=== PATIENT | male | born 1965 | race Caucasian/White ===

== ENCOUNTER 2018-06-18 13:39 | Observation (INO) | payer BC, OTHER ==
[~2018-06-18] VITALS: Ht 170.2 cm; Wt 112.6 kg
[~2018-06-18 13:39] MED LIST: ASPIRIN 81 LOW81 MG PO; BENADRYL25 M1 OR; HYDROCORT2.51 EX; HYDROXYZ HCL25 MG OR; IMITREX25 MG PO; LISINOPRIL10 MG PO; LORTAB 5/3255 MG PO; TOPAMAX25 MG PO
[2018-06-18 14:10] LABS: HEMATOCRIT 38.4 % (39.0-50.0); IMMATURE GRANULOCYTES 1.6 % (0.0-5.0); MEAN CELL VOLUME 86.3 fL CALC (80.0-100.0); MEAN CORPUSCULAR HGB 29.2 pG CALC (26.0-32.0); MEAN CORPUSCULAR HGB CONC 33.9 g/L CALC (32.0-36.0); NEUT# 5.31 thou/uL (1.82-7.42); RED BLOOD COUNT 4.45 mill/uL (4.70-6.10); RED CELL DISTRI WIDTH 13.4 % (11.5-15.5)
[2018-06-18 14:41] LABS: ALBUMIN 3.5 g/dL (3.2-5.0); BILIRUBIN, TOTAL 0.7 mg/dL (0.0-1.4); POTASSIUM 3.6 mmol/l (3.5-5.1); TOTAL PROTEIN 6.4 g/dL (6.3-8.2)
[2018-06-18 14:43] LABS: CREATININE 2.6 mg/dL (0.7-1.3)
[2018-06-18] MEDS ORDERED: PRAVASTATIN10 MG PO (15:58)
[2018-06-18] MEDS ORDERED: LOSARTAN POTASS50 MG PO (15:58)
[2018-06-18] MEDS ORDERED: AMITRIPTYLIN25 MG PO (15:59)
[2018-06-18] MEDS ORDERED: TAMSULOSIN HCL0.4 MG PO (15:59)
[2018-06-18] MEDS ORDERED: IMITREX25 MG PO (16:00)
[2018-06-18 16:15] VITALS: BP 118/61
[2018-06-18 17:29] LABS: URINE BILIRUBIN - DIPSTICK NEGATIVE (NEGATIVE); URINE BLOOD DIPSTICK MODERATE (NEGATIVE); URINE COLOR YELLOW; URINE GLUCOSE - DIPSTICK NEGATIVE (NEGATIVE); URINE KETONE NEGATIVE (NEGATIVE); URINE LEUK ESTERASE NEGATIVE (NEGATIVE); URINE NITRITE - DIPSTICK NEGATIVE (Negative); URINE PH 5.5 (4.5-8.0); URINE PROTEIN - DIPSTICK NEGATIVE (NEG-TRACE); URINE SPECIFIC GRAVITY <=1.005; URINE UROBILINOGEN - DIPSTICK 0.2 E.U./dL (0.2)
[2018-06-18 17:32] LABS: URINE CLARITY CLEAR
[2018-06-18 18:11] LABS: URINE SQUAMOUS EPITHELIAL CELL FEW EPI/hpf (0-FEW)
[2018-06-18 19:00] VITALS: BP 108/64
[2018-06-19 00:40] VITALS: BP 103/59
[2018-06-19 05:19] VITALS: BP 100/57
[2018-06-19 05:45] LABS: HEMATOCRIT 37.9 % (39.0-50.0); HEMOGLOBIN 12.8 g/dl (14.0-18.0); IMMATURE GRANULOCYTES 0.4 % (0.0-5.0); MEAN CELL VOLUME 87.7 fL CALC (80.0-100.0); MEAN CORPUSCULAR HGB 29.6 pG CALC (26.0-32.0); MEAN CORPUSCULAR HGB CONC 33.8 g/L CALC (32.0-36.0); NEUT# 3.48 thou/uL (1.82-7.42); RED BLOOD COUNT 4.32 mill/uL (4.70-6.10); RED CELL DISTRI WIDTH 13.5 % (11.5-15.5)
[2018-06-19 06:19] LABS: ANION GAP 13 (6-22 (CALC)); BUN 20 mg/dL (9-20); CARBON DIOXIDE 21 mmol/l (22-30); CHLORIDE 110 mmol/l (95-108); GFR 53 ML/MIN (>=60 (CALC)); POTASSIUM 3.8 mmol/l (3.5-5.1); SODIUM 140 mmol/l (137-146)
[2018-06-19 06:24] LABS: BUN/CREATININE RATIO 14 (12-20 (CALC)); CREATININE 1.4 mg/dL (0.7-1.3); GFR FOR AFR.AMER. > 60 ML/MIN (>=60 (CALC))
[2018-06-19 08:00] VITALS: BP 97/52
[2018-06-19 11:07] VITALS: BP 91/58
[2018-06-19 15:22] VITALS: BP 103/43
[2018-06-19 19:27] VITALS: BP 99/52
[2018-06-20] VITALS: BP 133/80
[2018-06-20 04:00] VITALS: BP 128/80
[2018-06-20 07:20] VITALS: BP 96/50
[2018-06-20 07:47] LABS: HEMATOCRIT 37.1 % (39.0-50.0); HEMOGLOBIN 12.3 g/dl (14.0-18.0); IMMATURE GRANULOCYTES 0.6 % (0.0-5.0); MEAN CELL VOLUME 88.3 fL CALC (80.0-100.0); MEAN CORPUSCULAR HGB 29.3 pG CALC (26.0-32.0); MEAN CORPUSCULAR HGB CONC 33.2 g/L CALC (32.0-36.0); NEUT# 1.91 thou/uL (1.82-7.42); RED BLOOD COUNT 4.2 mill/uL (4.70-6.10); RED CELL DISTRI WIDTH 13.6 % (11.5-15.5)
[2018-06-20 08:41] LABS: ALKALINE PHOSPHATASE 30 u/l (38-126); ANION GAP 11 (6-22 (CALC)); BILIRUBIN, TOTAL 0.5 mg/dL (0.0-1.4); BUN 14 mg/dL (9-20); BUN/CREATININE RATIO 14 (12-20 (CALC)); CARBON DIOXIDE 24 mmol/l (22-30); CHLORIDE 111 mmol/l (95-108); CPK 1414 u/l (52-200); CREATININE 1.1 mg/dL (0.7-1.3); GFR > 60 ML/MIN (>=60 (CALC)); GFR FOR AFR.AMER. > 60 ML/MIN (>=60 (CALC)); POTASSIUM 4.5 mmol/l (3.5-5.1); SGOT/AST 52 u/l (17-59); SGPT/ALT 41 u/l (21-72); SODIUM 142 mmol/l (137-146); TOTAL PROTEIN 5.7 g/dL (6.3-8.2)
[2018-06-20 11:05] VITALS: BP 105/61
[2018-06-20 16:05] VITALS: BP 114/70
[2018-06-20 19:00] VITALS: BP 105/66
[2018-06-21] VITALS: BP 103/64
[2018-06-21 05:05] LABS: HEMATOCRIT 38.4 % (39.0-50.0); HEMOGLOBIN 12.9 g/dl (14.0-18.0); IMMATURE GRANULOCYTES 0.4 % (0.0-5.0); MEAN CELL VOLUME 87.3 fL CALC (80.0-100.0); MEAN CORPUSCULAR HGB 29.3 pG CALC (26.0-32.0); MEAN CORPUSCULAR HGB CONC 33.6 g/L CALC (32.0-36.0); NEUT# 2.76 thou/uL (1.82-7.42); RED BLOOD COUNT 4.4 mill/uL (4.70-6.10); RED CELL DISTRI WIDTH 13.2 % (11.5-15.5)
[2018-06-21 05:27] LABS: ALBUMIN 3.4 g/dL (3.2-5.0); ALKALINE PHOSPHATASE 36 u/l (38-126); ANION GAP 15 (6-22 (CALC)); BILIRUBIN, TOTAL 0.6 mg/dL (0.0-1.4); BUN 13 mg/dL (9-20); BUN/CREATININE RATIO 12 (12-20 (CALC)); CARBON DIOXIDE 22 mmol/l (22-30); CHLORIDE 112 mmol/l (95-108); CREATININE 1.1 mg/dL (0.7-1.3); GFR > 60 ML/MIN (>=60 (CALC)); GFR FOR AFR.AMER. > 60 ML/MIN (>=60 (CALC)); MAGNESIUM 1.7 mg/dL (1.6-2.3); POTASSIUM 4.3 mmol/l (3.5-5.1); SGOT/AST 45 u/l (17-59); SGPT/ALT 39 u/l (21-72); SODIUM 145 mmol/l (137-146); TOTAL PROTEIN 6.3 g/dL (6.3-8.2)
[2018-06-21 05:33] VITALS: BP 112/71
[2018-06-21 08:00] VITALS: BP 127/81
[2018-06-22] MEDS ORDERED: BACTRIM DS1 TAB PO (18:34)
== END 2018-06-21 11:32 | disposition home or self-care (01) | DRG 558 ==
LOC: ED 13:39 → ED-I 13:54 → ED 13:54 → ED-I 15:21 → ED 15:29 → MS2 15:30
PROVIDERS: Family Medicine; Internal Medicine; Internal Medicine Nephrology; ADMIT Internal Medicine; ATTEND Internal Medicine
DX: M62.82 Rhabdomyolysis (principal); N17.9 Acute kidney failure, unspecified; E86.0 Dehydration; I10 Essential (primary) hypertension; N40.0 Benign prostatic hyperplasia without lower urinary tract symptoms; E66.9 Obesity, unspecified; X30.XXXA Exposure to excessive natural heat, initial encounter; Y93.H2 Activity, gardening and landscaping; Y92.007 Garden or yard of unspecified non-institutional (private) residence as the place of occurrence of the external cause; Z68.38 Body mass index [BMI] 38.0-38.9, adult
CPT/HCPCS: G0378

== ENCOUNTER 2018-06-22 16:02 | Emergency (ER) | payer BC, OTHER ==
[~2018-06-22] VITALS: Ht 170.2 cm; Wt 114.8 kg
[~2018-06-22 16:02] MED LIST changes: +AMITRIPTYLIN25 MG PO; +LOSARTAN POTASS50 MG PO; +PRAVASTATIN10 MG PO; +TAMSULOSIN HCL0.4 MG PO
[2018-06-22 17:25] LABS: HEMATOCRIT 34.6 % (39.0-50.0); HEMOGLOBIN 11.7 g/dl (14.0-18.0); IMMATURE GRANULOCYTES 0.4 % (0.0-5.0); MEAN CELL VOLUME 86.3 fL CALC (80.0-100.0); MEAN CORPUSCULAR HGB 29.2 pG CALC (26.0-32.0); MEAN CORPUSCULAR HGB CONC 33.8 g/L CALC (32.0-36.0); NEUT# 2.93 thou/uL (1.82-7.42); RED BLOOD COUNT 4.01 mill/uL (4.70-6.10); RED CELL DISTRI WIDTH 13.2 % (11.5-15.5)
[2018-06-22 17:26] LABS: URINE BILIRUBIN - DIPSTICK NEGATIVE (NEGATIVE); URINE BLOOD DIPSTICK NEGATIVE (NEGATIVE); URINE COLOR YELLOW; URINE GLUCOSE - DIPSTICK NEGATIVE (NEGATIVE); URINE KETONE NEGATIVE (NEGATIVE); URINE LEUK ESTERASE NEGATIVE (NEGATIVE); URINE NITRITE - DIPSTICK NEGATIVE (Negative); URINE PROTEIN - DIPSTICK NEGATIVE (NEG-TRACE); URINE UROBILINOGEN - DIPSTICK 0.2 E.U./dL (0.2)
[2018-06-22 17:27] LABS: URINE CLARITY CLEAR
[2018-06-22 17:50] LABS: ALBUMIN 3.5 g/dL (3.2-5.0); ALKALINE PHOSPHATASE 35 u/l (38-126); ANION GAP 15 (6-22 (CALC)); BILIRUBIN, TOTAL 0.7 mg/dL (0.0-1.4); BUN 13 mg/dL (9-20); BUN/CREATININE RATIO 9 (12-20 (CALC)); CARBON DIOXIDE 25 mmol/l (22-30); CHLORIDE 109 mmol/l (95-108); CPK 319 u/l (52-200); CREATININE 1.4 mg/dL (0.7-1.3); GFR 53 ML/MIN (>=60 (CALC)); GFR FOR AFR.AMER. > 60 ML/MIN (>=60 (CALC)); POTASSIUM 4.1 mmol/l (3.5-5.1); SGOT/AST 31 u/l (17-59); SGPT/ALT 39 u/l (21-72); SODIUM 145 mmol/l (137-146); TOTAL PROTEIN 6.2 g/dL (6.3-8.2)
[2018-06-22] MEDS ORDERED: BACTRIM DS1 TAB PO (18:34)
[2018-06-22 19:08] VITALS: BP 140/86
[2018-06-23] MEDS ORDERED: TAMSULOSIN0.4 MG PO (09:09)
== END 2018-06-22 19:08 | disposition home or self-care (01) | DRG 696 ==
LOC: ED 16:02
PROVIDERS: Emergency Medicine
PROC: 0T9B70Z Drainage of Bladder with Drainage Device, Via Natural or Artificial Opening (ICD-10-PCS; principal; 2018-06-22)
DX: R33.9 Retention of urine, unspecified (principal); M62.82 Rhabdomyolysis; I10 Essential (primary) hypertension; K29.70 Gastritis, unspecified, without bleeding; K44.9 Diaphragmatic hernia without obstruction or gangrene

== ENCOUNTER 2018-06-23 07:53 | Emergency (ER) | payer BC, OTHER ==
[~2018-06-23] VITALS: Ht 170.2 cm; Wt 111.3 kg
[~2018-06-23 07:53] MED LIST changes: +BACTRIM DS1 TAB PO
[2018-06-23 08:45] LABS: HEMATOCRIT 35.3 % (39.0-50.0); HEMOGLOBIN 12.2 g/dl (14.0-18.0); IMMATURE GRANULOCYTES 0.4 % (0.0-5.0); MEAN CELL VOLUME 84.7 fL CALC (80.0-100.0); MEAN CORPUSCULAR HGB 29.3 pG CALC (26.0-32.0); MEAN CORPUSCULAR HGB CONC 34.6 g/L CALC (32.0-36.0); NEUT# 3.06 thou/uL (1.82-7.42); RED BLOOD COUNT 4.17 mill/uL (4.70-6.10); RED CELL DISTRI WIDTH 13.2 % (11.5-15.5)
[2018-06-23] MEDS ORDERED: TAMSULOSIN0.4 MG PO (09:09)
[2018-06-23 09:12] LABS: ANION GAP 15 (6-22 (CALC)); BUN 12 mg/dL (9-20); BUN/CREATININE RATIO 10 (12-20 (CALC)); CARBON DIOXIDE 23 mmol/l (22-30); CHLORIDE 108 mmol/l (95-108); CREATININE 1.2 mg/dL (0.7-1.3); GFR > 60 ML/MIN (>=60 (CALC)); GFR FOR AFR.AMER. > 60 ML/MIN (>=60 (CALC)); POTASSIUM 3.7 mmol/l (3.5-5.1); SODIUM 142 mmol/l (137-146)
[2018-06-23 09:41] VITALS: BP 131/75
[2018-06-23 10:00] LABS: URINE BILIRUBIN - DIPSTICK SMALL (NEGATIVE); URINE BLOOD DIPSTICK LARGE (NEGATIVE); URINE CLARITY CLOUDY; URINE COLOR RED; URINE GLUCOSE - DIPSTICK NEGATIVE (NEGATIVE); URINE KETONE NEGATIVE (NEGATIVE); URINE LEUK ESTERASE NEGATIVE (NEGATIVE); URINE NITRITE - DIPSTICK NEGATIVE (Negative); URINE PH 5.5 (4.5-8.0); URINE PROTEIN - DIPSTICK 100 mg/dL (NEG-TRACE); URINE SPECIFIC GRAVITY 1.025; URINE UROBILINOGEN - DIPSTICK 0.2 E.U./dL (0.2)
[2018-06-23 10:01] LABS: URINE RBC TNTC RBC/hpf (0-5); URINE SQUAMOUS EPITHELIAL CELL FEW EPI/hpf (0-FEW)
== END 2018-06-23 09:41 | disposition home or self-care (01) | DRG 696 ==
LOC: ED 07:53
PROVIDERS: Family Medicine
DX: R31.9 Hematuria, unspecified (principal); R33.9 Retention of urine, unspecified; K44.9 Diaphragmatic hernia without obstruction or gangrene; I10 Essential (primary) hypertension; K29.70 Gastritis, unspecified, without bleeding

== ENCOUNTER 2023-10-25 07:08 | Day surgery (SDC) | payer BC ==
[~2023-10-25] VITALS: Ht 170.2 cm; Wt 116.1 kg
[~2023-10-25 07:08] MED LIST changes: +D350 MCG PO; +OMEGA-3 FISH1000 MG PO; +PROSCAR5 MG PO; +SAW PALMETTO1 CAP PO; +TAMSULOSIN0.4 MG PO; +TESTOSTERON100 MG/ML SC
[2023-10-26 07:21] VITALS: BP 131/84
== END 2023-10-25 10:26 | disposition home or self-care (01) | DRG 951 ==
LOC: ENDO 07:08 → ORM 09:00 → ENDO 10:26 → ORM 10:30
PROVIDERS: ATTEND Internal Medicine Gastroenterology
PROC: 0DBK8ZX Excision of Ascending Colon, Via Natural or Artificial Opening Endoscopic, Diagnostic (ICD-10-PCS; principal; 2023-10-25)
PROC: 0DBL8ZX Excision of Transverse Colon, Via Natural or Artificial Opening Endoscopic, Diagnostic (ICD-10-PCS; 2023-10-25)
PROC: 0DBN8ZX Excision of Sigmoid Colon, Via Natural or Artificial Opening Endoscopic, Diagnostic (ICD-10-PCS; 2023-10-25)
PROC: 0DBM8ZX Excision of Descending Colon, Via Natural or Artificial Opening Endoscopic, Diagnostic (ICD-10-PCS; 2023-10-25)
DX: Z12.11 Encounter for screening for malignant neoplasm of colon (principal); D12.4 Benign neoplasm of descending colon; D12.3 Benign neoplasm of transverse colon; K63.5 Polyp of colon; K57.30 Diverticulosis of large intestine without perforation or abscess without bleeding; K64.8 Other hemorrhoids; I10 Essential (primary) hypertension; E78.5 Hyperlipidemia, unspecified; Z86.010 Personal history of colon polyps

== ENCOUNTER 2024-11-27 09:23 | Day surgery (SDC) | payer OTHER ==
[~2024-11-27] VITALS: Ht 170.2 cm; Wt 113.4 kg
[~2024-11-27 09:23] MED LIST changes: +B121000 MC1 PO; +EZETIMIBE10 MG PO; +FENOFIBRATE145 MG PO
[2024-11-27] MEDS ORDERED: SODIUM CHLORIDE 0.9% 1,000 ML IV ONE (09:25)
[2024-11-27] MEDS ORDERED: FAMOTIDINE 10MG/ML 2ML SDV IV ONE (09:25)
[2024-11-27 10:59] VITALS: BP 134/88
[2024-11-27] MEDS ORDERED: GLYCOPYRROLATE 0.2 MG/ML IV ONE (13:33)
[2024-11-27] MEDS ORDERED: LIDOCAINE HCL 2% 2ML SDV IV ONE (13:33)
[2024-11-27] MEDS ORDERED: PROPOFOL 200 MG/20 ML VIAL IV ONE (13:33)
== END 2024-11-27 11:13 | disposition home or self-care (01) | DRG 951 ==
LOC: ENDO 09:23 → ORM 11:30
PROVIDERS: ATTEND Surgery
PROC: 0DBM8ZX Excision of Descending Colon, Via Natural or Artificial Opening Endoscopic, Diagnostic (ICD-10-PCS; principal; 2024-11-27)
DX: Z12.11 Encounter for screening for malignant neoplasm of colon (principal); D17.5 Benign lipomatous neoplasm of intra-abdominal organs; I10 Essential (primary) hypertension; Z86.0101 Personal history of adenomatous and serrated colon polyps
CPT/HCPCS: J1596